=== PATIENT | female | born 2000 | race Caucasian/White ===

== ENCOUNTER 2020-01-11 16:40 | Emergency (ER) | payer BC ==
[2020-01-11 16:59] VITALS: BP 109/73; RESP 18
[2020-01-11] MEDS ORDERED: ACETAMINOPHEN TAB 325 MG TAB PO STA (17:00)
[2020-01-11] MEDS ORDERED: DEXAMETHASONE 4 MG TAB PO STA (18:28)
--- NOTE | 2020-01-11 18:28 | ED ---
URI HPI - General Chief Complaint: Upper Respiratory Infection Stated Complaint: sore throat Source: patient Mode of arrival: ambulatory Limitations: no limitations - History of Present Illness Initial Comments: 19-year-old female presenting today for chief complaint of sore throat. Patient states she's had sore throat for the past day. Patient denies any neck stiffness photophobia difficulty breathing difficulty swallowing she states she is very mild cough. Patient denies a chest pain shortness of breath. Patient states she has felt like she has had some chills denies body aches. Patient denies recording a fever patient denies any other complaints. Upon arrival patient appears well signs of acute distress - Related Data Allergies Allergy/AdvReac Type Severity Reaction Status Date / Time sumatriptan Allergy Unknown Verified 01/11/20 16:55 Review of Systems ROS Statement: Those systems with pertinent positive or pertinent negative responses have been documented in the HPI. ROS Other: All systems not noted in ROS Statement are negative. Past Medical History Past Medical History: No Reported History History of Any Multi-Drug Resistant Organisms: None Reported Past Surgical History: No Surgical Hx Reported Past Psychological History: No Psychological Hx Reported Smoking Status: Never smoker Past Alcohol Use History: None Reported Past Drug Use History: None Reported General Exam - General Exam Comments Initial Comments: General: The patient is awake and alert, in no distress Eye: +3 mm pupils are equal, round and reactive to light, extra-ocular movemen ts are intact. No nystagmus. There is normal conjunctiva bilaterally. No signs of icterus. No photophobia Ears, nose, mouth and throat: There are moist mucous membranes and no oral lesions. Oropharynx was not erythematous there is no tonsillar enlargement exudates or lesions. Uvula midline. Tympanic membranes is mildly erythematous or is no effusions bulging or retraction. No tenderness to palpation of the mastoid. There is mild anterior cervical , tender. NO posterior. Rhinorrhea, clear and bilateral nares. No tripoding, no drooling. Neck: The neck is supple, there is no tenderness or JVD. No nuchal rigidity Cardiovascular: There is a regular rate and rhythm. No murmur, rub or gallop is appreciated. Respiratory: Lungs are clear to auscultation, respirations are non-labored, breath sounds are equal. No wheezes, stridor, rales, or rhonchi. No retractions or abdominal breathing. Gastrointestinal: Soft, non-distended, non-tender abdomen without masses or organomegaly noted. There is no rebound or guarding present. Bowel sounds are unremarkable. Musculoskeletal: Normal ROM, no tenderness. Strength 5/5. Sensation intact. Radial pulses equal bilaterally 2+. Neurological: A&O x 3. CN II-XII intact grossly, There are no obvious motor or sensory deficits. Coordination appears grossly intact. Speech appears normal, no muffling. Skin: Skin is warm and dry and no rashes or lesions are noted. No extremity edema Psychiatric: Cooperative Limitations: no limitations Course Vital Signs 01/11/20 01/11/20 16:57 18:53 Temperature 100.3 F H 98.7 F Pulse Rate 120 H 100 Respiratory 18 Rate Blood Pressure 109/73 O2 Sat by Pulse 100 Oximetry Medical Decision Making - Medical Decision Making Nontoxic appearing 19-year-old female presents for sore throat times one day. Oropharynx erythematous. Mild no tonsillar exudates. Uvula midline. No hot potato voice no muffling of the voice. Patient febrile. No nuchal rigidity. Patient is some mild anterior lymphadenopathy no posterior chain lymph nodes of the rapid strep negative culture pending. Patient's lungs clear. No signs of otitis media at this time I feel patient most likely has a viral pharyngitis. Symptomatically was discussed, patient given Decadron in the ER. Discussed return parameters, importance of f/u. Patient verbalized understanding and was discharged appearing well with resolution of fevr. Case discussed with Tian Moreno - Lab Data Lab Results 01/11/20 Range/Units 17:01 Influenza Type A RNA Not Detected (Not Detectd) Influenza Type B (PCR) Not Detected (Not Detectd) Group A Strep Rapid Negative (Negative) Disposition Clinical Impression: Pharyngitis Disposition: HOME SELF-CARE Condition: Good Instructions (If sedation given, give patient instructions): Pharyngitis (ED) Additional Instructions: Please use medication as discussed. Please follow-up with family doctor in the next 2 days. Please return to emergency room if the symptoms increase or worsen or for any other concerns. Is patient prescribed a controlled substance at d/c from ED?: No Referrals: Smith Tabares MD [Primary Care Provider] - 1-2 days Time of Disposition: 18:28
[2020-01-11 18:54] VITALS: PULSE 100; TEMP 98.7
== END 2020-01-11 18:53 | disposition home or self-care (01) ==
LOC: EC 16:40
DX: J02.9 Acute pharyngitis, unspecified (principal); R50.9 Fever, unspecified; R05 Cough; Z88.8 Allergy status to other drugs, medicaments and biological substances
CPT/HCPCS: 87081; 87430; 87502; 99283; J8540

== ENCOUNTER 2020-01-25 | Emergency (ER) | payer BC | END 2020-01-25 18:21 | disposition home or self-care (01) | CPT/HCPCS: 87081; 87430; 99283 ==

== ENCOUNTER 2020-11-21 23:13 | Emergency (ER) | payer BC ==
[2020-11-21 23:20] VITALS: BP 123/70; PULSE 88; RESP 19; TEMP 98.7
--- NOTE | 2020-11-21 23:44 | ED ---
General Adult HPI - General Chief complaint: Urogenital Stated complaint: poss UTI, abd pain Time Seen by Provider: 11/21/20 23:24 Source: patient, RN notes reviewed Mode of arrival: ambulatory Limitations: no limitations - History of Present Illness Initial comments: 20-year-old female presents to the emergency room for a chief complaint of dysuria. Patient states she has had burning pain with urination and pressure in her abdomen after urinating for about 3 days now. She did see her primary care provider and has had 2 days of Bactrim. Patient reports she has tried Bactrim for a urinary tract infection in the past and it did not work for her. States that she told her primary care provider this but they wanted to give it a try. Patient denies fevers or chills. Admits to low back pain denies any upper flank pain.Patient has no other complaints at this time including shortness of breath, chest pain, nausea or vomiting, headache, or visual changes. - Related Data Previous Rx's Medication Instructions Recorded Penicillin V Potassium [Pen Vee K] 500 mg PO BID 10 Days #20 tablet 01/25/20 Allergies Allergy/AdvReac Type Severity Reaction Status Date / Time sumatriptan Allergy Unknown Verified 11/21/20 23:20 Review of Systems ROS Statement: Those systems with pertinent positive or pertinent negative responses have been documented in the HPI. ROS Other: All systems not noted in ROS Statement are negative. Past Medical History Past Medical History: No Reported History History of Any Multi-Drug Resistant Organisms: None Reported Past Surgical History: No Surgical Hx Reported Past Psychological History: No Psychological Hx Reported Smoking Status: Never smoker Past Alcohol Use History: None Reported Past Drug Use History: None Reported General Exam Limitations: no limitations General appearance: alert Head exam: Present: atraumatic Eye exam: Present: normal appearance ENT exam: Present: normal exam, mucous membranes moist Neck exam: Present: normal inspection, full ROM. Absent: tenderness, meningismus, lymphadenopathy Respiratory exam: Present: normal lung sounds bilaterally. Absent: respiratory distress Cardiovascular Exam: Present: regular rate, normal rhythm, normal heart sounds GI/Abdominal exam: Present: soft, normal bowel sounds. Absent: distended, tenderness, guarding, rebound, rigid Back exam: Absent: CVA tenderness (R), CVA tenderness (L) Course Vital Signs 11/21/20 23:17 Temperature 98.7 F Pulse Rate 88 Respiratory 19 Rate Blood Pressure 123/70 O2 Sat by Pulse 99 Oximetry Medical Decision Making - Medical Decision Making Vitals are stable. No abdominal tenderness. No CVA tenderness. Patient does have some low back pain however no flank pain. Patient was put on Bactrim 2 days ago without improvement symptoms. States when she had Bactrim in the past this did not seem to help. Patient unsure if she had a culture performed. I did test patient for STDs. Patient refused a pelvic exam stating "they terrify me." She denies vaginal discharge. Patient does not want empiric treatment at this time. She will follow up on results. We will type Macrobid instead of Bactrim. I do not suspect a pyelonephritis at this time. Vitals are stable and she does not have any flank pain or CVA tenderness. Patient can follow up with her doctor this week and return for worsening symptoms. - Lab Data Lab Results 11/21/20 11/21/20 Range/Units 23:25 23:25 Urine Color Light Yellow Urine Appearance Clear (Clear) Urine pH 6.0 (5.0-8.0) Ur Specific [place] 1.006 (1.001-1.035) Urine Protein Negative (Negative) Urine Glucose (UA) Negative (Negative) Urine Ketones 1+ H (Negative) Urine Blood Moderate H (Negative) Urine Nitrite Negative (Negative) Urine Bilirubin Negative (Negative) Urine Urobilinogen <2.0 (<2.0) mg/dL Ur Leukocyte Esterase Trace H (Negative) Urine RBC 99 H (0-5) /hpf Urine WBC 7 H (0-5) /hpf Ur Squamous Epith Cells 1 (0-4) /hpf Urine Bacteria Rare H (None) /hpf Urine HCG, Qual Not Detected (Not Detectd) Disposition Clinical Impression: Dysuria Disposition: HOME SELF-CARE Condition: Good Instructions (If sedation given, give patient instructions): Urinary Tract Infection in Women (ED) Additional Instructions: Please follow up on results of cultures. Please take antibiotic macrobid as directed. Return to the emergency room for any worsening symptoms. Otherwise follow-up with your doctor this week. Is patient prescribed a controlled substance at d/c from ED?: No Referrals: Smith Tabares MD [Primary Care Provider] - 1-2 days Time of Disposition: 00:04
[2020-11-21 23:52] LABS: Appearance,Urine Clear (Clear); Bacteria,Urine Rare /hpf; Bilirubin,Urine Negative (Negative); Blood,Urine Moderate (Negative); Color,Urine Light Yellow; Glucose,Urine (UA) Negative (Negative); Ketones,Urine 1+ (Negative); Leukocyte Esterase,Urine Trace (Negative); Nitrite,Urine Negative (Negative); Protein,Urine Negative (Negative); RBC,Urine 99 /hpf (0-5); Specific Gravity,Urine 1.006 (1.001-1.035); Squamous Epithelial Cell,Urine 1 /hpf (0-4); Urobilinogen,Urine <2.0 mg/dL (<2.0); WBC,Urine 7 /hpf (0-5)
[2020-11-22] MEDS ORDERED: NITROFURANTOIN MONOHYD/M-CRYST 100 MG CAP PO STA (00:03)
[2020-11-23 15:37] LABS: C. trachomatis,PCR Negative (Neg,Equiv); Chlamydia trachomatis Source Urine; N. gonorrhoeae,PCR Negative (Neg,Equiv); Neisseria Source Urine
== END 2020-11-22 00:30 | disposition home or self-care (01) ==
LOC: EC 23:13
DX: R30.0 Dysuria (principal); M54.5 Low back pain; Z32.02 Encounter for pregnancy test, result negative; Z88.8 Allergy status to other drugs, medicaments and biological substances
CPT/HCPCS: 81001; 81025; 87491; 87591; 87808; 99284

== ENCOUNTER 2021-11-13 16:57 | Emergency (ER) | payer BC ==
[2021-11-13 18:00] VITALS: BP 144/83; PULSE 111; RESP 18; TEMP 98.6
--- NOTE | 2021-11-13 18:00 | ED ---
General Adult HPI - General Stated complaint: cough, sore throat covid exposure Time Seen by Provider: 11/13/21 17:30 Source: patient, RN notes reviewed Mode of arrival: ambulatory Limitations: no limitations - History of Present Illness Initial comments: A 21-year-old female presents emergency dept chief complaint of COVID-19 exposure. Patient states that her brother tested +2 days ago. Patient states she was exposed states that she does have symptoms patient does have prior vaccine was more [place]. Patient states that she's had fever or chills bodyaches dizziness. Patient had no GI symptoms other complaints. - Related Data Previous Rx's Medication Instructions Recorded Penicillin V Potassium [Pen Vee K] 500 mg PO BID 10 Days #20 tablet 01/25/20 Nitrofurantoin Monohyd/M-Cryst 100 mg PO Q12HR #14 cap 11/22/20 [Macrobid] Allergies Allergy/AdvReac Type Severity Reaction Status Date / Time sumatriptan Allergy Unknown Verified 11/13/21 17:58 Review of Systems ROS Statement: Those systems with pertinent positive or pertinent negative responses have been documented in the HPI. ROS Other: All systems not noted in ROS Statement are negative. Past Medical History Past Medical History: No Reported History History of Any Multi-Drug Resistant Organisms: None Reported Past Surgical History: No Surgical Hx Reported Past Psychological History: No Psychological Hx Reported Smoking Status: Never smoker Past Alcohol Use History: None Reported Past Drug Use History: None Reported General Exam General appearance: alert, in no apparent distress Head exam: Present: atraumatic, normocephalic, normal inspection Eye exam: Present: normal appearance, PERRL, EOMI. Absent: scleral icterus, conjunctival injection, periorbital swelling ENT exam: Present: normal exam, normal oropharynx, mucous membranes moist Neck exam: Present: normal inspection, full ROM. Absent: tenderness, meningi smus, lymphadenopathy Respiratory exam: Present: normal lung sounds bilaterally. Absent: respiratory distress, wheezes, rales, rhonchi, stridor Cardiovascular Exam: Present: regular rate, normal rhythm, normal heart sounds. Absent: systolic murmur, diastolic murmur, rubs, gallop, clicks Skin exam: Present: warm, dry, intact, normal color. Absent: rash Course Vital Signs 11/13/21 17:58 Temperature 98.6 F Pulse Rate 111 H Respiratory 18 Rate Blood Pressure 144/83 O2 Sat by Pulse 100 Oximetry Medical Decision Making - Medical Decision Making Since test is negative for COVID-19. Patient discharged in stable condition. - Lab Data Lab Results 11/13/21 Range/Units 18:00 Coronavirus (PCR) Not Detected (Not Detectd) Disposition Clinical Impression: Encounter for laboratory testing for COVID-19 virus, URI (upper respiratory infection) Disposition: HOME SELF-CARE Condition: Stable Additional Instructions: Please return to the Emergency Department if symptoms worsen or any other concerns. Is patient prescribed a controlled substance at d/c from ED?: No Referrals: Smith Tabares MD [Primary Care Provider] - 1-2 days Time of Disposition: 18:43
== END 2021-11-13 19:00 | disposition home or self-care (01) ==
LOC: EC 16:57
DX: J06.9 Acute upper respiratory infection, unspecified (principal); Z20.822 Contact with and (suspected) exposure to COVID-19
CPT/HCPCS: 87635; 99283